=== PATIENT | male | born 1980 ===

== ENCOUNTER 2018-11-12 10:19 | Outpatient (CLI) | payer BC ==
[2018-11-12] MEDS ORDERED: ISOVUE-370 76%-LOCM 1 ML ONE (11:46)
--- NOTE | 2018-11-12 14:01 | CT ---
CT OF PELVIS PERFORMED WITH CONTRAST ENHANCEMENT: Date: 11/12/18 HISTORY: Patient has a history of perirectal abscess with surgery. Left buttock pain. Surgery for the abscess in August and has developed severe left buttock and lower back pain. COMPARISON: None. FINDINGS: Small hypodensity seen involving lower pole of right kidney, most likely a small cyst. There are some small nonspecific ileocolic lymph nodes present. There is no free fluid in the pelvis and there are no signs of any pelvic lymphadenopathy or mass. Prostate does not appear enlarged. I see no signs of any recurrent perirectal abscess. No signs of any type of fistula or soft tissue ma ss. Minimal nonspecific fat stranding within the medial aspects of the fat of both buttock regions. T his is fairly symmetric. Review of osseous structures shows no significant findings. IMPRESSION: Unremarkable CT of the pelvis. POS: Edwina
== END 2018-11-12 10:20 | disposition home or self-care (01) ==
LOC: BICCT 10:19
PROVIDERS: ATTEND Family Medicine
DX: M79.18 Myalgia, other site (principal); Z98.890 Other specified postprocedural states
CPT/HCPCS: 72193; Q9966